=== PATIENT | male | born 1960 | race Caucasian/White ===

== ENCOUNTER 2020-03-13 10:03 | Emergency (ER) | payer OTHER ==
[~2020-03-13] VITALS: Ht 175.3 cm; Wt 81.2 kg
--- NOTE | 2020-03-13 10:05 | NUR ---
Rafael powell in EDM - 03/13/20 at 1614 by DCABANOS o2 titatrated down to 5L/min via nc. pt satting at 99%
--- NOTE | 2020-03-13 10:15 | NUR ---
william, from [facility], altered, cough and congestion for few days, 02 desat 68% on room air, 95% on 15lpm via non rebreather mask, [id number]. Iv access started. blood draw done. sent to lab. urine collected sent to lab
[2020-03-13] MEDS ORDERED: ACETAMINOPHEN 650 MG/SUPP.RECT RC ONE ×2 (10:35→11:00)
[2020-03-13 10:38] LABS: BASOPHILS # (AUTO) 0.1 /CMM (0.0-0.2); BASOPHILS % (AUTO) 0.6 % (0.0-2.0); HEMATOCRIT 48 % (39-51); HEMOGLOBIN 15.4 g/dL (13.5-17.5); LYMPHOCYTES # (AUTO) 0.8 /CMM (0.8-4.8); LYMPHOCYTES % (AUTO) 3.9 % (20.0-44.0); MEAN CORPUSCULAR HGB CONC 32 g/dl (31.0-36.0); MEAN CORPUSCULAR VOLUME 101 fL (80-96); MONOCYTES # (AUTO) 2.3 /CMM (0.1-1.30); MONOCYTES % (AUTO) 10.7 % (2.0-12.0); NEUTROPHILS # (AUTO) 18.3 /CMM (1.8-8.9); NEUTROPHILS % (AUTO) 84.8 % (43.0-81.0); PLATELET COUNT (AUTO) 311 /CMM (150-450); RED BLOOD CELL COUNT(AUTO) 4.72 MIL/uL (4.5-6.0); WHITE BLOOD COUNT (AUTO) 21.6 K/uL (4.3-11.0)
[2020-03-13 10:56] LABS: CALCIUM, SERUM 9.5 mg/dL (8.5-10.1); CARBON DIOXIDE 25 mmol/L (21-32); CHLORIDE 105 mmol/L (98-107); CREATININE 1.3 mg/dL (0.6-1.3); GLUCOSE 149 mg/dL (74-106); POTASSIUM 4.6 mmol/L (3.5-5.1); SODIUM SERUM 141 mmol/L (136-145); UREA NITROGEN, BLOOD 26 mg/dL (7-18)
--- NOTE | 2020-03-13 10:58 | NUR ---
PAGED ASHLY EPRP.
[2020-03-13 11:02] LABS: ALANINE AMINOTRANSFERASE 11 U/L (12-78); ALBUMIN 3.2 g/dL (3.4-5.0); ALKALINE PHOSPHATASE 96 U/L (46-116); ASPARTATE AMINOTRANSFERASE 23 U/L (15-37); BILIRUBIN,DIRECT 0.2 mg/dL (0.0-0.2); BILIRUBIN,TOTAL 0.5 mg/dL (0.2-1.0); TOTAL PROTEIN, SERUM 7.9 g/dL (6.4-8.2)
[2020-03-13] MEDS ORDERED: CEFEPIME 1 GM in IV D5W 50 ML IV ONE (11:30)
[2020-03-13] MEDS ORDERED: VANCOMYCIN 1 GM in IV D5W 250 ML IV ONE (11:30)
[2020-03-13] MEDS ORDERED: IV NS 0.9% 1,000 ML BAG IV ONE (11:30)
[2020-03-13 11:56] LABS: BILIRUBIN,URINE NEGATIVE (NEGATIVE); BLOOD, URINE TRACE Ery/uL (NEGATIVE); COLOR,URINE YELLOW (YELLOW); LEUKOCYTE ESTERASE ,URINE NEGATIVE (NEGATIVE); NITRITE, URINE NEGATIVE (NEGATIVE); PROTEIN,URINE TRACE mg/dl (NEGATIVE); UGLUCOSE NEGATIVE (NEGATIVE); UROBILINOGEN,URINE 0.2 EU/dL (0.2)
[2020-03-13] MEDS ORDERED: LEVOFLOXACIN 500 MG /D5W 100ML 500 MG/100 ML PIGGYBACK IV ONE (12:00)
[2020-03-13] MEDS ORDERED: CLON1TAB12 PO (12:08)
[2020-03-13] MEDS ORDERED: SIMV-49 PO (12:08)
[2020-03-13] MEDS ORDERED: DIVA-78 PO (12:08)
[2020-03-13] MEDS ORDERED: TRAZ-257 PO (12:08)
[2020-03-13] MEDS ORDERED: PANT40TA2 PO (12:08)
[2020-03-13] MEDS ORDERED: CARB-93 PO (12:08)
[2020-03-13] MEDS ORDERED: LITH300T PO (12:08)
[2020-03-13] MEDS ORDERED: ALBU18HF2 IH (12:08)
[2020-03-13] MEDS ORDERED: LITH450T2 PO (12:08)
[2020-03-13] MEDS ORDERED: BUSP15TA3 PO (12:08)
[2020-03-13 12:09] LABS: BACTERIA,URINE Rare /HPF (None Seen); RBC,URINE 0-2 /HPF (0-2); SQUAMOUS EPITHELIAL CELL,UR Rare /HPF (None Seen); WBC,URINE 0-2 /HPF (0-3)
[2020-03-13] MEDS ORDERED: LEVOFLOXACIN 500 MG /D5W 100ML 100 ML IV ONE (13:21)
--- NOTE | 2020-03-13 13:57 | NUR ---
Leon [phone] (admin)
--- NOTE | 2020-03-13 15:04 | NUR ---
SPOKE WITH [facility] FROM [facility]. REQUESTING TO ASK PATIENT OR RESPONSIBLE LIBERTARIAN IF OKAY TO TRANSFER TO [facility] ([facility]). SPOKE WITH RAGHAV (ADMIN FROM FACILITY), "EX- [facility] IS THE ONE RESPONSIBLE". SPOKE WITH [facility], RE: [facility]'S QUESTION. PER [facility] "OKAY TO TRANSFER TO [facility] OR [facility]. [facility] FROM [facility], MADE AWARE RE: [facility]'S ANSWER.
--- NOTE | 2020-03-13 15:05 | NUR ---
o2 titatrated down to 5L/min via nc. pt satting at 99%. made aware
--- NOTE | 2020-03-13 15:31 | NUR ---
SPOKE TO [facility] (EX-) STATES THAT "OKAY TO TRANSFER TO [facility] FOR CONINUATION OF CARE".
[2020-03-13 16:20] LABS: ABG BASE EXCESS -1.1 mmol/L; ABG OXYGEN SATURATION 95.5 % (92.0-98.5); ABG PCO2 38.8 mmHg (35.0-45.0); ABG PO2 76.5 mmHg (75.0-100.0); AaDO2 135.2 mmHg; COHb 0.3 % (0.5-1.5); MetHb 0.4 % (0.0-1.5); O2Hb 94.8 % (94.0-97.0); SITE, ABG Right Radial; VENT MODE, BG NC 4 L
--- NOTE | 2020-03-13 17:15 | NUR ---
ASHLY EPRP CALLED BACK. PT ACCEPTED AT [facility], ROOM [address] DR. GRAJEDA. NUMBER FOR REPORT [phone]. ALS TRANSPORT 1 HOUR 1815 WITH [facility].
--- NOTE | 2020-03-13 17:28 | NUR ---
report given to janel fuentes at [facility].
--- NOTE | 2020-03-13 18:42 | NUR ---
pt picked [facility] by [employer] [facility]
[2020-03-13 18:43] VITALS: BP 162/88
== END 2020-03-13 18:44 | disposition short-term general hospital (02) ==
LOC: ER 10:10
DX: A41.9 Sepsis, unspecified organism (principal); J18.9 Pneumonia, unspecified organism; E78.5 Hyperlipidemia, unspecified; K21.9 Gastro-esophageal reflux disease without esophagitis; F32.9 Major depressive disorder, single episode, unspecified; F41.9 Anxiety disorder, unspecified; Z20.828 Contact with and (suspected) exposure to other viral communicable diseases; R41.82 Altered mental status, unspecified; I48.91 Unspecified atrial fibrillation; Z79.899 Other long term (current) drug therapy
CPT/HCPCS: 36415; 36600 ×2; 71045; 80048; 80076; 81001; 82803; 83605 ×2; 84145; 84484; 85025; 85730; 87040 ×2; 87081; 87086; 87426; 87804; 93005; 96365; 96367; 99285; C9803; J1956; J3370; J7030; U0003; J7060